=== PATIENT | female | born 1965 | race American Indian/Alaskan Native ===

== ENCOUNTER 2017-08-05 08:42 | Day surgery (SDC) | payer OTHER ==
[2017-08-05 09:37] VITALS: BMI 34.5
[2017-08-05] MEDS ORDERED: Propofol 10 mg/ml Inj (20 ML) ONE ×4 (11:17→12:14)
[2017-08-05] MEDS ORDERED: Lactated Ringer's 500 ML IV ONE (11:19)
[2017-08-05] MEDS ORDERED: Lactated Ringer's 500 ML IV SCH (11:45)
[2017-08-05 13:36] VITALS: TEMP 97.6
[2017-08-05 13:45] VITALS: BP 118/72; PULSE 68; RESP 18; O2SAT 99
== END 2017-08-05 13:15 | disposition home or self-care (01) ==
LOC: C.ENDO 08:42
PROVIDERS: ATTEND Internal Medicine Gastroenterology
DX: D12.5 Benign neoplasm of sigmoid colon (principal); K64.8 Other hemorrhoids
CPT/HCPCS: 45388; 88305; J2704; J7120